=== PATIENT | male | born 1990 | race Caucasian/White ===

== ENCOUNTER → 2019-11-12 | Outpatient (REF) | payer BC ==
[2019-11-12 16:21] LABS: CHLAMYDIA DNA AMPLIFICATION POSITIVE (NEGATIVE); GC DNA AMPLIFICATION NEGATIVE (NEGATIVE)
== END ==
LOC: M SFHCLERA 10:48
PROVIDERS: ATTEND Physician Assistant
DX: Z20.9 Contact with and (suspected) exposure to unspecified communicable disease (principal)

== ENCOUNTER → 2020-09-30 | Outpatient (REF) | payer BC | LOC: M SMT 13:20 | PROVIDERS: ATTEND Urology | DX: Z30.2 Encounter for sterilization (principal) ==

== ENCOUNTER → 2021-04-11 | Outpatient (REF) | payer BC ==
[2021-04-11 09:38] LABS: SEMEN APPEARANCE OPAQUE (OPAQUE)
[2021-04-11 09:39] LABS: SEMEN VISCOSITY LIQUID (LIQUID); SEMEN VOLUME 2.9 ml (2.0-5.0); WBC CONCENTRATION >1 M/ml (<=1 M/ml)
== END ==
LOC: M SMT 08:57
PROVIDERS: ATTEND Urology
DX: Z30.2 Encounter for sterilization (principal)